=== PATIENT | male | born 1970 | race Caucasian/White ===

== ENCOUNTER 2017-11-19 10:20 | Emergency (ER) | payer BC ==
[2017-11-19] MEDS ORDERED: Cephalexin 500 MG CAP ONE (11:19)
[2017-11-19] MEDS ORDERED: Sulfameth/Trimethoprim DS 800-160mg TAB ONE (11:19)
--- NOTE | 2017-11-19 15:23 | ULT ---
ULTRASOUND WITH DOPPLER DUPLEX VENOUS LOWER EXTREMITY LEFT: HISTORY: A 47-year-old male with left lower extremity edema and pain. TECHNIQUE: Color flow Doppler, spectral waveform analysis of pulsed Doppler, and hodge-scale imaging with kaitlyn eileen and augmentation, were used to evaluate the left common femoral, femoral, popliteal, posterior t ibial, and superficial femoral, veins; and the proximal portions of the profunda femoral and greater saphenous, veins. FINDINGS: There is normal compressibility, demonstration of blood flow by color Doppler and pulsed Doppler, and response to augmentation, in all interrogated veins. IMPRESSION: Negative. No deep vein thrombosis in the left lower extremity. jn[] POS: [facility]
== END 2017-11-19 14:19 | disposition home or self-care (01) ==
LOC: SCSER 10:20
DX: I87.8 Other specified disorders of veins (principal); L03.116 Cellulitis of left lower limb; E11.9 Type 2 diabetes mellitus without complications; E78.5 Hyperlipidemia, unspecified; M10.9 Gout, unspecified; J45.909 Unspecified asthma, uncomplicated; Z79.84 Long term (current) use of oral hypoglycemic drugs; Z79.899 Other long term (current) drug therapy
CPT/HCPCS: 36416

== ENCOUNTER 2019-01-12 12:54 | Outpatient (CLI) | payer BC ==
--- NOTE | 2019-01-12 14:09 | RAD ---
XR Lumbar Spine 2 Or 3 View HISTORY: Back pain and right leg pain COMPARISON: None. FINDINGS: The vertebral bodies are normal in height degenerative osteophytes are present. No signific ant disc narrowing, other than some minimal disc narrowing at L2-3. No spondylolisthesis. A minimal retrolisthesis of L2 on L3 is seen. Flexion-extension views show at no abnormal motion. IMPRESSION: Mild arthritic changes in the spine.
--- NOTE | 2019-01-12 14:34 | MRI ---
MRI LUMBAR SPINE WITHOUT IV CONTRAST: HISTORY: Lumbar radiculopathy. Low back pain. Right lower extremity pain for 5 to 6 weeks. TECHNIQUE: Multiplanar, multisequence MRI examination of the lumbar spine is performed. FINDINGS: The conus medullaris region is unremarkable, terminating at L1. There are some generalized disc anish ccation changes and ligament and facet hypertrophic changes. No significant abnormal marrow signal. T12-L1: Unremarkable. L1-L2: Unremarkable. L2-L3: Mild disk bulging with small annular fissures with very mild thinning of the lateral recesses and very slight foraminal narrowing. L3-L4: Mild lateral recess thinning. Focal right posterolateral protrusion and annular fissure with moderate right foraminal stenosis and mild lateral recess thinning. L4-L5: Mild disk bulging without canal, lateral recess, or foraminal stenosis. L5-S1: Unremarkable. IMPRESSION: 1. Disk desiccation changes and ligament and facet hypertrophic changes. 2. Multilevel variable severity, mostly mild to moderate, lateral recess and foraminal stenosis, wit h moderate right foraminal stenosis, particularly at L3-L4. POS: [facility]
== END 2019-01-12 12:55 | disposition home or self-care (01) ==
LOC: SCSMRI 12:54
PROVIDERS: ATTEND Anesthesiology Pain Medicine
DX: M54.16 Radiculopathy, lumbar region (principal); M46.96 Unspecified inflammatory spondylopathy, lumbar region; M48.061 Spinal stenosis, lumbar region without neurogenic claudication
CPT/HCPCS: 72100; 72148

== ENCOUNTER 2019-06-07 12:59 | Outpatient (CLI) | payer BC | END 2019-06-07 13:00 | disposition home or self-care (01) | PROVIDERS: ATTEND Nurse Practitioner Adult Health | DX: R07.89 Other chest pain (principal); Z82.49 Family history of ischemic heart disease and other diseases of the circulatory system | CPT/HCPCS: 93017 ==

== ENCOUNTER 2020-11-05 13:42 | Emergency (ER) | payer BC, OTHER ==
[2020-11-05 15:10] LABS: #Eosinphils 0.6 thou/uL (0.0-0.7); #Lymphocytes 2.1 thou/uL (1.20-3.40); #Monocytes 0.6 thou/uL (0.11-0.59); #Neutrophils 3.6 thou/uL (1.40-6.50); %Basophils 0.3 % (0.0-1.0); %Eosinophils 8.7 % (0.0-10.0); %Lymphocytes 29.8 % (21.0-51.0); %Monocytes 8.9 % (0.0-10.0); %Neutrophils 52.3 % (42.0-75.0); Hemoglobin 14.9 g/dL (14.0-18.0); Mean Corpuscular Hemoglobin 32.7 pg (27.0-31.0); Mean Corpuscular Volume 93.6 fL (78.0-98.0); Mean Platelet Volume 8.2 fL (7.4-10.4); Platelet Count 198 thou/uL (130-400); RBC Distribution Width 11.1 % (11.5-14.5); Red Blood Cell (RBC) Count 4.56 mill/uL (4.70-6.10); White Blood Cell (WBC) Count 6.9 thou/uL (4.8-10.8)
[2020-11-05 15:50] LABS: ALT (SGPT) 46 U/L (8-55); AST (SGOT) 29 U/L (5-34); Albumin 3.9 g/dL (3.5-5.0); Alkaline Phosphatase 61 U/L (40-110); Anion Gap 15 mmol/L (10-20); BUN (Urea Nitrogen) 14 mg/dL (8.4-25.7); Bilirubin, Total 0.5 mg/dL (0.2-1.2); Calc. Creatinine Clearance 0 mL/min (70-130); Calcium 9.3 mg/dL (7.8-10.44); Carbon Dioxide 22 mmol/L (22-29); Chloride 105 mmol/L (98-107); Globulin 2.5 g/dL (2.4-3.5); Glucose 106 mg/dL (70-105); Potassium 3.8 mmol/L (3.5-5.1); Protein, Total 6.4 g/dL (6.0-8.3); Sodium 138 mmol/L (136-145)
== END 2020-11-05 17:13 | disposition home or self-care (01) ==
LOC: ERS 13:42
DX: J32.9 Chronic sinusitis, unspecified (principal); E78.5 Hyperlipidemia, unspecified; E78.00 Pure hypercholesterolemia, unspecified; E11.9 Type 2 diabetes mellitus without complications; J45.909 Unspecified asthma, uncomplicated; Z79.84 Long term (current) use of oral hypoglycemic drugs; Z79.899 Other long term (current) drug therapy; W01.0XXA Fall on same level from slipping, tripping and stumbling without subsequent striking against object, initial encounter
CPT/HCPCS: 36415; 70450; 71045; 80053; 84484; 85025; 93005